=== PATIENT | male | born 1955 | race Caucasian/White ===

== ENCOUNTER 2023-08-15 21:05 | Emergency (ER) | payer MEDICARE, SELFPAY ==
[2023-08-15 21:09] VITALS: BP 158/98; PULSE 55; RESP 18; TEMP 36.6; O2SAT 98; BMI 32.5
--- NOTE | 2023-08-15 21:17 | ED_ITS ---
HPI - Eye Problem General Chief complaint: Eye Problems Stated complaint: Foreign Body in Eye Time Seen by Provider: 08/15/23 21:06 Source: patient Mode of arrival: walk-in Limitations: no limitations History of Present Illness HPI Narrative: patient states he stepped out of his truck and the wind blew something into his eye. Not able to get it out. Incident about an hour ago. Vision a little blurry because his eye is teary. No eye pain or headache. Related Data Home Medications ?Medication ?Instructions ?Recorded ?Confirmed amlodipine 5 mg tablet mg 08/15/23 atorvastatin 80 mg tablet mg 08/15/23 fenofibrate nanocrystallized 145 mg PO 08/15/23 mg tablet hydrochlorothiazide 25 mg tablet mg 08/15/23 irbesartan 300 mg tablet mg 08/15/23 pantoprazole 40 mg tablet,delayed mg PO 08/15/23 release Allergies Allergy/AdvReac Type Severity Reaction Status Date / Time No Known Drug Allergies Allergy Verified 08/15/23 21:14 Review of Systems ROS Status of ROS 10 or more systems reviewed and unremark able except as noted in history and below Exam Constitutional Vital Signs, click to edit/add: Last Vital Signs Temp 98 F 08/15/23 21:09 Pulse 56 L 08/15/23 21:52 Resp 16 08/15/23 21:52 BP 156/96 H 08/15/23 21:52 Pulse Ox 99 08/15/23 21:52 O2 Del Method Room Air 08/15/23 21:52 Common normals: no apparent distress, average body habitus, oriented x3, no limitations, healthy appearing, alert and well nourished [facility] Common normals: normocephalic and head/scalp atraumatic Eye Common normals: PERRL, EOMs intact bilaterally and conjunctivae normal Other: left conjunctiva clear but eye is watery. No obvious FB Respiratory Common normals: normal respiratory effort, no retractions and no use of accessory muscles GI Common normals: Normal to inspection, nondistended, normoactive bowel sounds present and soft to palpation Extremity Common normals: normal to inspection and full ROM Neuro Common normals: oriented x3, CN's II-XII intact bilaterally, moves all extremities and no focal motor deficits Psych Appearance: grossly normal Course Vital Signs Vital signs: Vital Signs Temperature 98 F 08/15/23 21:09 Pulse Rate 55 L 08/15/23 21:09 Respiratory Rate 18 08/15/23 21:09 Blood Pressure 158/98 H 08/15/23 21:09 Pulse Oximetry 98 08/15/23 21:09 Oxygen Delivery Method Room Air 08/15/23 21:09 Temperature 98 F 08/15/23 21:09 Pulse Rate 56 L 08/15/23 21:52 Respiratory Rate 16 08/15/23 21:52 Blood Pressure 156/96 H 08/15/23 21:52 Pulse Oximetry 99 08/15/23 21:52 Oxygen Delivery Method Room Air 08/15/23 21:52 MDM - Eye Problem MDM Narrative Medical decision making narrative: patient presents complaining of FB sensation left eye. States he step out of his truck and something blew into his eye. Was not able to get it out. Inspection of the eye without obvious FB. Tetracaine instilled in the eye and fluorescein dye. UV lamp without obvious uptake of dye. Eyelid everted and no obvious FB seen. Patient informed there is no clear FB seen or obvious abrasion. Will treat with antibiotic drops over night and he is advised to have his eye rechecked tomorrow Discharge Plan Discharge Stand Alone Forms: Portal Instructions Chief Complaint: Eye Problems Clinical Impression: Corneal irritation of left eye Patient Disposition: Home, Self-Care Condition: Good Mode of Transportation: Private Vehicle Prescriptions / Home Meds: No Action atorvastatin 80 mg tablet amlodipine 5 mg tablet pantoprazole 40 mg tablet,delayed release (DR/EC) PO hydrochlorothiazide 25 mg tablet irbesartan 300 mg tablet fenofibrate nanocrystallized 145 mg tablet PO Print Language: Romanian Instructions: Eye Pain (ED) Additional Instructions: instill 2 drops in the eye every 2-3 hours while awake and have the eye recheck ed tomorrow Referrals: Physician,Non-Staff, MD [Primary Care Provider] - 1 week Discharge Date/Time: 08/15/23 21:52
[2023-08-15] MEDS: FLUORESCEIN SODIUM 1 MG STRIP OP (21:24)
[2023-08-15] MEDS: TETRACAINE HCL 0.5% OP SOL 80 DROP/4 ML BOTTLE OP (21:25)
[2023-08-15] MEDS: TOBRAMYCIN 0.3% OP SOL 100 DROP/5 ML BOTTLE OP (21:48)
[2023-08-15] MEDS: HYDROCODONE/ACET 5-325 MG TABLET 4 TAB PO (21:49)
[2023-08-15 21:52] VITALS: BP 156/96; PULSE 56; RESP 16; O2SAT 99
== END 2023-08-15 21:52 | disposition home or self-care (01) ==
PROVIDERS: Emergency Provider Internal Medicine
DX: H18.892 Other specified disorders of cornea, left eye (principal); Z79.899 Other long term (current) drug therapy
CPT/HCPCS: 99283